=== PATIENT | male | born 1995 | race Two or more races ===

== ENCOUNTER 2023-11-23 21:29 | Emergency (ER) | payer MEDICAID, OTHER ==
[~2023-11-23] VITALS: Ht 182.9 cm; Wt 103.5 kg
[2023-11-24] MEDS ORDERED: CYCL-839 PO (01:43)
[2023-11-24] MEDS ORDERED: HYDR-4902 PO (01:43)
[2023-11-24 02:34] VITALS: BP 134/85; PULSE 72; RESP 19; TEMP 98
[2023-11-24] MEDS: HYDROcodone-ACET 5/325MG TAB PO ONE (03:39)
[2023-11-24] MEDS: DexAMETHasone SOD PHOS 10MG/1ML VIAL INJ IM ONE (03:40)
[2023-11-24 03:58] VITALS: O2SAT 98
== END 2023-11-24 03:58 | disposition home or self-care (01) ==
LOC: ER 21:29
DX: S13.9XXA Sprain of joints and ligaments of unspecified parts of neck, initial encounter (principal); S29.012A Strain of muscle and tendon of back wall of thorax, initial encounter; S06.0X0A Concussion without loss of consciousness, initial encounter; M62.838 Other muscle spasm; V43.52XA Car driver injured in collision with other type car in traffic accident, initial encounter; Y93.89 Activity, other specified; Y92.89 Other specified places as the place of occurrence of the external cause; Y99.8 Other external cause status
CPT/HCPCS: 70450; 72125; 72128; 96372; 99285; J1100